=== PATIENT | female | born 1995 | race Hispanic/Latino ===

== ENCOUNTER 2021-09-16 14:26 | Emergency (ER) | payer MEDICAID, SELFPAY ==
[2021-09-16 14:32] VITALS: BP 97/57; PULSE 69; RESP 18; TEMP 36.3; O2SAT 100
[2021-09-16 16:37] VITALS: BP 101/52; PULSE 67; RESP 16; TEMP 37; O2SAT 98
== END 2021-09-16 18:31 | disposition left against medical advice (07) ==
LOC: ANHED 18:44
DX: R14.0 Abdominal distension (gaseous) (principal)
CPT/HCPCS: 99199

== ENCOUNTER 2021-12-02 18:50 | Emergency (ER) | payer OTHER, SELFPAY ==
[2021-12-02 18:59] VITALS: BP 116/78; PULSE 68; RESP 16; TEMP 36.5; O2SAT 98
[2021-12-02] MEDS: ACETAMINOPHEN 500 MG TABLET 1000 MG PO (20:45)
[2021-12-02] MEDS: LIDOCAINE HCL 2% VISC SOLN 15 ML UDC (21:22)
--- NOTE | 2021-12-03 00:47 | ED.DENTAL ---
HPI - Dental/Oral General Chief complaint: Dental/Oral <Mariella Chadwick PA-C - Last Filed: 12/03/21 00:55> Stated complaint: dental pain <KEN Lane Last Filed: 12/03/21 00:55> Time Seen by Provider: 12/02/21 19:56 <KEN Lane Last Filed: 12/03/21 00:55> History of Present Illness HPI Narrative: Patient is a 26-year-old female with a history of dental caries, old dental fracture of tooth #8, who presents for 3 days of dental pain. States the pain is worse with cold liquids. She was seen by a dentist today, who told the patient that she needs dental extractions to manage her pain. He provided her with a referral, but patient did not call that number. The dentist provided her with 800 mg of ibuprofen and a course of Amoxicillin, but her pain has persisted, is why she presented to the emergency department. She denies any vocal changes, trismus, drooling, shortness of breath, fevers. <Mariella Chadwick PA-C - Last Filed: 12/03/21 00:55> Related Data Allergies/adverse reactions: Allergies Allergy/AdvReac Type Severity Reaction Status Date / Time No Known Allergies Allergy Verified 12/02/21 19:42 <Mariella Chadwick PA-C - Last Filed: 12/03/21 00:55> Review of Systems Review of Systems: Gen.: Denies fevers or chills Eyes: Denies eye pain or visual change ENT: Reports dental pain. Denies congestion Respiratory: Denies shortness of breath or cough CV: Denies chest pain or palpitations GI: Denies abdominal pain nausea, emesis or diarrhea denies burning, urgency, frequency or hematuria Musculoskeletal: Denies back pain or muscle pain Neuro: Denies numbness, tingling, weakness or focal weakness Skin: Denies rash Except as documented, all other systems reviewed and negative <KEN Lane Last Filed: 12/03/21 00:55> All systems reviewed & are unremarkable except as noted in HPI and below <Mariella Chadwick PA-C - Last Filed: 12/03/21 00:55> Exam Narrative: Gen: Alert, oriented, uncomfortable appearing. Eyes: EOMI, no icterus ENT: Patient has numerous dental caries, and in the area of her pain there is a dental carry noted. There is no dental abscess palpated. Tooth #8 is cracked. she has no trismus and is tolerating her secretions. No sublingual swelling. Pulm: Respirations even and unlabored, symmetric thorax expansion, no audible stridor or visible cyanosis CV: Regular rate per telemetry GI: No distension, no voluntary/involuntary guarding Neuro: AOx4, moves all extremities without apparent difficulty or weakness, follows commands Skin: No jaundice, no visible bruising, rashes, lesions or wounds on exposed skin Psych: Normal mood/affect, insight/judgement good, adequate fund of knowledge, recent/remote memory intact <Mariella Chadwick PA-C - Last Filed: 12/03/21 00:55> Course [employer]ER/PA Physician Supervision I did not see this patient nor was the care plan discussed with me. I was available for evaluation and consultation, I agree with the documentation <Ronnell Thomson MD - Last Filed: 12/03/21 02:01> Vital Signs Vital signs: Vital Signs Temperature 36.5 C 12/02/21 18:59 Pulse Rate 68 12/02/21 18:59 Respiratory Rate 16 12/02/21 18:59 Blood Pressure 116/78 12/02/21 18:59 Pulse Oximetry 98 12/02/21 18:59 Temperature 36.5 C 12/02/21 18:59 Pulse Rate 68 12/02/21 18:59 Respiratory Rate 16 12/02/21 18:59 Blood Pressure 116/78 12/02/21 18:59 Pulse Oximetry 98 12/02/21 18:59 <Mariella Chadwick PA-C - Last Filed: 12/03/21 00:55> Vital Signs Temperature 36.5 C 12/02/21 18:59 Pulse Rate 68 12/02/21 18:59 Respiratory Rate 16 12/02/21 18:59 Blood Pressure 116/78 12/02/21 18:59 Pulse Oximetry 98 12/02/21 18:59 Temperature 36.5 C 12/02/21 18:59 Pulse Rate 68 12/02/21 18:59 Respiratory Rate 16 12/02/21 18:59 Blood Pressure 116/78
== END 2021-12-02 22:27 | disposition home or self-care (01) ==
PROVIDERS: Emergency Provider Emergency Medicine
DX: K08.89 Other specified disorders of teeth and supporting structures (principal)
CPT/HCPCS: 99282; A9270